=== PATIENT | male | born 1990 | race African-American/Black ===

== ENCOUNTER 2016-11-10 10:20 | Emergency (ER) | payer OTHER ==
[~2016-11-10] VITALS: Ht 170.2 cm; Wt 72.6 kg
--- NOTE | 2016-11-10 12:10 | REP ---
Clinical: Inguinal pain. Technique: Real time man scale ultrasound examination using linear high frequency transducer. Findings: Ultrasound examination of the bilateral inguinal canals during normal respiratory motion and Valsalva is unremarkable. There is no evidence for inguinal hernia. Impression: Normal bilateral inguinal canals. No evidence for hernia. Signed by Jacob Arellano MD 11/10/2016 12:02 P
--- NOTE | 2016-11-10 12:11 | REP ---
Clinical: Inguinal and scrotal pain. Technique: Ruiz scale and color Doppler evaluation using linear and curved array transducer with color Doppler evaluation. Findings: The testicles and epididymi are relatively normal in contour, size, echogenicity, vascularity and overall appearance/contour. Few bilateral intratesticular microcalcifications are identified which are otherwise nonspecific. There is no evidence for intratesticular mass lesion, infectious/inflammatory process, with torsion. Incidental note is made of a 4 mm right tunica cyst. No obvious/ significant hydroceles or varicoceles are identified. Right testicle measures 4.8 x 1.9 x 2.9 cm. Left testicle measures 4.3 x 1.9 x 2.6 cm. Impression: Essentially normal scrotal ultrasound. Few intratesticular calcifications are nonspecific. 4 mm right tunica cyst. Signed by Jacob Aerllano MD 11/10/2016 12:03 P
[2016-11-10 12:45] VITALS: BP 122/79
[2016-11-10] MEDS ORDERED: NAPR500T PO (13:21)
--- NOTE | 2016-11-14 09:53 | ED PDOC ---
Post-Departure Follow-Up dr ramirez faxed formal report of scrotal us for fu Tasia Leon MD November 14, 2016 09:53
== END 2016-11-10 13:58 | disposition home or self-care (01) ==
LOC: M ED 11:16
DX: N44.1 Cyst of tunica albuginea testis (principal)